=== PATIENT | female | born 1985 | race Caucasian/White ===

== ENCOUNTER 2017-07-31 01:34 | Emergency (ER) | payer OTHER ==
[2017-07-31] MEDS ORDERED: Bacitracin Oint 1 GM U/D Packet ONE (01:47)
[2017-07-31] MEDS ORDERED: Diphtheria,Pertussis(Acell),Tetanus Vaccine 0.5 ML Syringe ONE (01:48)
[2017-07-31] MEDS ORDERED: Diphtheria,Pertussis(Acell),Tetanus Vaccine 0.5 ML Syringe IM ONE (02:05)
[2017-07-31] MEDS ORDERED: Bacitracin Oint 1 GM U/D Packet TOP ONE (02:06)
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
[2017-07-31 03:12] VITALS: BP 107/75
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
== END 2017-07-31 03:08 | disposition home or self-care (01) ==
LOC: MW.ED 01:34
DX: S09.90XA Unspecified injury of head, initial encounter (principal); S01.01XA Laceration without foreign body of scalp, initial encounter; Z98.51 Tubal ligation status; Z87.891 Personal history of nicotine dependence; Y04.0XXA Assault by unarmed brawl or fight, initial encounter; Z23 Encounter for immunization
CPT/HCPCS: 12001; 70450; 70450-26; 72040; 72040-26; 90471; 90715; 99282; 99284-25